=== PATIENT | female | born 1980 ===

== ENCOUNTER 2020-05-22 07:00 | Inpatient (IN) | payer OTHER ==
[~2020-05-22] VITALS: Ht 152.4 cm; Wt 68.0 kg
== END 2020-05-31 12:16 | disposition home or self-care (01) | DRG 743 ==
LOC: EDSTATUS 07:00 → ADM 07:00 → OB/GYN 05-28 07:00 → SURH 05-28 07:00 → OB/GYN 05-28 10:56 → O/R 05-28 10:56 → OB/GYN 05-28 19:07
PROVIDERS: ADMIT Obstetrics & Gynecology; ATTEND Obstetrics & Gynecology
PROC: 0UB70ZZ Excision of Bilateral Fallopian Tubes, Open Approach (ICD-10-PCS; 2020-05-28)
PROC: 0UT90ZZ Resection of Uterus, Open Approach (ICD-10-PCS; principal; 2020-05-28 20:45)
DX: D25.1 Intramural leiomyoma of uterus (principal); D25.2 Subserosal leiomyoma of uterus; N80.0 Endometriosis of uterus; N72 Inflammatory disease of cervix uteri; N83.209 Unspecified ovarian cyst, unspecified side; N93.9 Abnormal uterine and vaginal bleeding, unspecified